=== PATIENT | female | born 1990 | race Caucasian/White ===

== ENCOUNTER 2023-12-10 18:00 | Outpatient (RCR) | payer OTHER, SELFPAY | END 2023-12-10 23:59 | disposition home or self-care (01) | LOC: RPT 18:00 | PROVIDERS: ATTENDING PHYSICIAN Urology; FAMILY PHYSICIAN Family Medicine | DX: N94.10 Unspecified dyspareunia (principal); M62.89 Other specified disorders of muscle; N39.0 Urinary tract infection, site not specified; R10.2 Pelvic and perineal pain; Z73.6 Limitation of activities due to disability | CPT/HCPCS: 97110; 97112; 97140; 97163; 97530 ==

== ENCOUNTER 2024-01-15 17:12 | Outpatient (RCR) | payer OTHER, SELFPAY | END 2024-01-15 23:59 | disposition home or self-care (01) | LOC: RPT 17:12 | PROVIDERS: ATTENDING PHYSICIAN Urology; FAMILY PHYSICIAN Family Medicine | DX: N94.10 Unspecified dyspareunia (principal); M62.89 Other specified disorders of muscle; N39.0 Urinary tract infection, site not specified; R10.2 Pelvic and perineal pain; Z73.6 Limitation of activities due to disability | CPT/HCPCS: 97014; 97140; 97530 ==

== ENCOUNTER 2024-02-12 17:06 | Outpatient (RCR) | payer BC, SELFPAY | END 2024-02-12 23:59 | disposition home or self-care (01) | LOC: RPT 17:06 | PROVIDERS: ATTENDING PHYSICIAN Urology; FAMILY PHYSICIAN Family Medicine | DX: N94.10 Unspecified dyspareunia (principal); M62.89 Other specified disorders of muscle; N39.0 Urinary tract infection, site not specified; R10.2 Pelvic and perineal pain; Z73.6 Limitation of activities due to disability | CPT/HCPCS: 97014; 97110; 97112; 97140; 97163; 97530 ==

== ENCOUNTER 2024-03-04 17:34 | Outpatient (RCR) | payer BC, SELFPAY | END 2024-03-04 23:59 | disposition home or self-care (01) | LOC: RPT 17:34 | PROVIDERS: ATTENDING PHYSICIAN Urology; FAMILY PHYSICIAN Family Medicine | DX: N94.10 Unspecified dyspareunia (principal); M62.89 Other specified disorders of muscle; N39.0 Urinary tract infection, site not specified; R10.2 Pelvic and perineal pain; Z73.6 Limitation of activities due to disability | CPT/HCPCS: 97014; 97110; 97140; 97530 ==

== ENCOUNTER 2024-04-15 17:30 | Outpatient (RCR) | payer BC, SELFPAY | END 2024-04-15 23:59 | disposition home or self-care (01) | LOC: RPT 17:30 | PROVIDERS: ATTENDING PHYSICIAN Urology; FAMILY PHYSICIAN Family Medicine | DX: N94.10 Unspecified dyspareunia (principal); M62.89 Other specified disorders of muscle; N39.0 Urinary tract infection, site not specified; R10.2 Pelvic and perineal pain; Z73.6 Limitation of activities due to disability | CPT/HCPCS: 97014; 97110; 97140; 97530 ==

== ENCOUNTER 2024-04-27 15:07 | Outpatient (RCR) | payer BC, SELFPAY | END 2024-04-27 23:59 | disposition home or self-care (01) | LOC: RPT 15:07 | PROVIDERS: ATTENDING PHYSICIAN Urology; FAMILY PHYSICIAN Family Medicine | DX: N94.10 Unspecified dyspareunia (principal); M62.89 Other specified disorders of muscle; N39.0 Urinary tract infection, site not specified; R10.2 Pelvic and perineal pain; Z73.6 Limitation of activities due to disability | CPT/HCPCS: 97112; 97140; 97530 ==

== ENCOUNTER 2024-06-16 17:11 | Outpatient (RCR) | payer BC, SELFPAY | END 2024-06-16 23:59 | disposition home or self-care (01) | LOC: RPT 17:11 | PROVIDERS: ATTENDING PHYSICIAN Urology; FAMILY PHYSICIAN Family Medicine | DX: N94.10 Unspecified dyspareunia (principal); M62.89 Other specified disorders of muscle; N39.0 Urinary tract infection, site not specified; R10.2 Pelvic and perineal pain; Z73.6 Limitation of activities due to disability | CPT/HCPCS: 97014; 97112; 97140; 97530 ==

== ENCOUNTER 2024-07-14 17:12 | Outpatient (RCR) | payer BC, SELFPAY | END 2024-07-14 23:59 | disposition home or self-care (01) | LOC: RPT 17:12 | PROVIDERS: ATTENDING PHYSICIAN Urology; FAMILY PHYSICIAN Family Medicine | DX: N94.10 Unspecified dyspareunia (principal); M62.89 Other specified disorders of muscle; N39.0 Urinary tract infection, site not specified; R10.2 Pelvic and perineal pain; Z73.6 Limitation of activities due to disability | CPT/HCPCS: 97014; 97112; 97140; 97530 ==

== ENCOUNTER 2024-08-12 16:40 | Outpatient (RCR) | payer BC, SELFPAY | END 2024-08-12 23:59 | disposition home or self-care (01) | LOC: RPT 16:40 | PROVIDERS: ATTENDING PHYSICIAN Urology; FAMILY PHYSICIAN Family Medicine | DX: N94.10 Unspecified dyspareunia (principal); M62.89 Other specified disorders of muscle; N39.0 Urinary tract infection, site not specified; R10.2 Pelvic and perineal pain; Z73.6 Limitation of activities due to disability | CPT/HCPCS: 97140; 97530 ==

== ENCOUNTER 2024-09-14 17:08 | Outpatient (RCR) | payer BC, SELFPAY | END 2024-09-14 23:59 | disposition home or self-care (01) | LOC: RPT 17:08 | PROVIDERS: ATTENDING PHYSICIAN Urology; FAMILY PHYSICIAN Family Medicine | DX: N94.10 Unspecified dyspareunia (principal); M62.89 Other specified disorders of muscle; N39.0 Urinary tract infection, site not specified; R10.2 Pelvic and perineal pain; Z73.6 Limitation of activities due to disability | CPT/HCPCS: 97014; 97110; 97112; 97140; 97530 ==

== ENCOUNTER 2024-10-06 17:17 | Outpatient (RCR) | payer BC, SELFPAY | END 2024-10-06 23:59 | disposition home or self-care (01) | LOC: RPT 17:17 | PROVIDERS: ATTENDING PHYSICIAN Urology; FAMILY PHYSICIAN Family Medicine | DX: N94.10 Unspecified dyspareunia (principal); M62.89 Other specified disorders of muscle; N39.0 Urinary tract infection, site not specified; R10.2 Pelvic and perineal pain; Z87.440 Personal history of urinary (tract) infections; Z73.6 Limitation of activities due to disability | CPT/HCPCS: 97014; 97112; 97140; 97530 ==

== ENCOUNTER 2024-11-04 17:10 | Outpatient (RCR) | payer BC, SELFPAY | END 2024-11-04 23:59 | disposition home or self-care (01) | LOC: RPT 17:10 | PROVIDERS: ATTENDING PHYSICIAN Urology; FAMILY PHYSICIAN Family Medicine | DX: N94.10 Unspecified dyspareunia (principal); M62.89 Other specified disorders of muscle; R10.2 Pelvic and perineal pain; Z73.6 Limitation of activities due to disability; Z87.440 Personal history of urinary (tract) infections; N39.0 Urinary tract infection, site not specified | CPT/HCPCS: 97014; 97140; 97530 ==

== ENCOUNTER 2024-12-01 17:06 | Outpatient (RCR) | payer BC, SELFPAY | END 2024-12-01 23:59 | disposition home or self-care (01) | LOC: RPT 17:06 | PROVIDERS: ATTENDING PHYSICIAN Urology; FAMILY PHYSICIAN Family Medicine | DX: N94.10 Unspecified dyspareunia (principal); M62.89 Other specified disorders of muscle; R10.2 Pelvic and perineal pain; Z73.6 Limitation of activities due to disability; Z87.440 Personal history of urinary (tract) infections; N39.0 Urinary tract infection, site not specified | CPT/HCPCS: 97140; 97530 ==

== ENCOUNTER 2025-01-05 17:10 | Outpatient (RCR) | payer BC, SELFPAY | END 2025-01-05 23:59 | disposition home or self-care (01) | LOC: RPT 17:10 | PROVIDERS: ATTENDING PHYSICIAN Urology; FAMILY PHYSICIAN Family Medicine | DX: N94.10 Unspecified dyspareunia (principal); M62.89 Other specified disorders of muscle; R10.2 Pelvic and perineal pain; Z73.6 Limitation of activities due to disability; Z87.440 Personal history of urinary (tract) infections; N39.0 Urinary tract infection, site not specified | CPT/HCPCS: 97140; 97530 ==

== ENCOUNTER 2025-02-17 17:19 | Outpatient (RCR) | payer BC, SELFPAY | END 2025-02-17 23:59 | disposition home or self-care (01) | LOC: RPT 17:19 | PROVIDERS: ATTENDING PHYSICIAN Urology; FAMILY PHYSICIAN Family Medicine | DX: N94.10 Unspecified dyspareunia (principal); M62.89 Other specified disorders of muscle; R10.2 Pelvic and perineal pain; Z73.6 Limitation of activities due to disability; N39.0 Urinary tract infection, site not specified; Z87.440 Personal history of urinary (tract) infections | CPT/HCPCS: 97140; 97530 ==

== ENCOUNTER 2025-05-04 09:04 | Outpatient (RCR) | payer BC, SELFPAY | END 2025-05-04 23:59 | disposition home or self-care (01) | LOC: RPT 09:04 | PROVIDERS: ATTENDING PHYSICIAN Urology; FAMILY PHYSICIAN Family Medicine | DX: N94.10 Unspecified dyspareunia (principal); M62.89 Other specified disorders of muscle; R10.2 Pelvic and perineal pain; Z73.6 Limitation of activities due to disability; N39.0 Urinary tract infection, site not specified; Z87.440 Personal history of urinary (tract) infections | CPT/HCPCS: 97110; 97140; 97530 ==

== ENCOUNTER 2025-07-13 17:08 | Outpatient (RCR) | payer BC, SELFPAY | END 2025-07-13 23:59 | disposition home or self-care (01) | LOC: RPT 17:08 | PROVIDERS: ATTENDING PHYSICIAN Family Medicine | DX: S93.491D Sprain of other ligament of right ankle, subsequent encounter (principal); Z73.6 Limitation of activities due to disability; M25.371 Other instability, right ankle; W10.9XXD Fall (on) (from) unspecified stairs and steps, subsequent encounter | CPT/HCPCS: 97110; 97112; 97140; 97161 ==

== ENCOUNTER 2025-07-15 09:14 | Outpatient (RCR) | payer BC, SELFPAY | END 2025-07-15 23:59 | disposition home or self-care (01) | LOC: RPT 09:14 | PROVIDERS: ATTENDING PHYSICIAN Urology; FAMILY PHYSICIAN Family Medicine | DX: N94.10 Unspecified dyspareunia (principal); M62.89 Other specified disorders of muscle; R10.2 Pelvic and perineal pain; Z73.6 Limitation of activities due to disability; N39.0 Urinary tract infection, site not specified; Z87.440 Personal history of urinary (tract) infections | CPT/HCPCS: 97110; 97140; 97530 ==

== ENCOUNTER 2025-07-29 09:26 | Outpatient (RCR) | payer BC, SELFPAY | END 2025-07-29 23:59 | disposition home or self-care (01) | LOC: RPT 09:26 | PROVIDERS: ATTENDING PHYSICIAN Family Medicine | DX: S93.491D Sprain of other ligament of right ankle, subsequent encounter (principal); Z73.6 Limitation of activities due to disability; M25.371 Other instability, right ankle; W10.9XXD Fall (on) (from) unspecified stairs and steps, subsequent encounter | CPT/HCPCS: 97110; 97112; 97140 ==

== ENCOUNTER 2025-10-01 21:03 | Emergency (ER) | payer BC, SELFPAY ==
[2025-10-01 21:05] VITALS: BP 137/81
[2025-10-01 21:22] VITALS: BMI 23.7
[2025-10-01 21:25] VITALS: BP 115/81
[2025-10-01] MEDS: NSS 500 IV (21:56)
[2025-10-01] MEDS: DECADRON 10 MG IV (21:57)
[2025-10-01 22:00] VITALS: BP 97/72
[2025-10-01] MEDS: PEPCID 20 MG IV (22:05)
[2025-10-01] MEDS: DUONEB 3 ML INH (22:07)
--- NOTE | 2025-10-01 22:08 | ED.GENMED ---
History of Present Illness
General
Chief Complaint: Allergic Reaction
Source: patient
Exam Limitations: none
Time Seen by Provider: 10/01/25 21:20
Nursing documentation reviewed up to this point in time: agreed with
History of Present Illness
History of Present Illness:
35-year-old female with past medical history of asthma, gluten allergy, presents to ER today with concerns of a possible allergic reaction. She reports that she ate dinner and shortly after she developed puffiness in her face and itchiness all over
her body. She also noted some stomach cramping and mucus sensation in her throat. She ate quinoa from a restaurant which she fears contained gluten. This is a typical reaction she gets with gluten. She has never required epi and Afrin in the
past. She has never been hospitalized with anaphylaxis. She also noted a little shortness of breath at the time and took albuterol which helped. She also did 50 mg of Benadryl. She denies any chest pain. She denies any fevers or chills. She
denies any new detergents she uses or facial washes. She denies any exposure to any other allergens.
Past History
Past History
ED Past Medical History: Asthma
ED Past Surgical History: None
Social History
Tobacco: Non-smoker
Alcohol: None
Personal: Single
Living: with family
Employment: Other (College student)
Review of Systems
Review of Systems
All Other Systems: ROS reviewed and negative except as documented in HPI and ROS
Phy Exam
Physical Exam
Physical Exam:
General: Patient is well appearing and in no acute distress; non-toxic
Skin: Warm and dry, mild erythema and periorbital swelling bilaterally, no evidence of rash on the torso or back, no urticaria
Head: Normocephalic, atraumatic
Eyes: Sclera non-icteric. EOMs intact.
Cardiac: Regular rate and rhythm, no murmurs
Peripheral Vascular: No lower extremity swelling or edema
Pulm: Normal respiratory effort, mild wheezing noted on the right side
Neuro: CN II-XII intact, no focal neurologic deficits.
Psychiatric: Appropriate mood and affect.
Course
Orders/Labs/Results
Orders:
Orders
10/01/25 21:50
Cardiac Monitoring- Treatment ONCE
Dexamethasone Sod Phosphate [Decadron] 10 mg IV NOW STA
Famotidine [Pepcid] 20 mg IV NOW STA
Ipratropium/Albuterol Sulfate [Duoneb] 3 ml INH R NOW STA
10/01/25 21:52
0.9% Sodium Chloride 500 ml [Nss] 500 ml IV BOLUS
Vital Signs
Initial and Last Documented VS:
Initial Vital Signs
Temp Pulse Resp BP Pulse Ox
97.6 F 88 14 137/81 99
10/01/25 21:05 10/01/25 21:05 10/01/25 21:05 10/01/25 21:05 10/01/25 21:05
Last Documented Vital Signs
Temp Pulse Resp BP Pulse Ox
97.6 F 83 14 102/71 96
10/01/25 21:05 10/01/25 23:45 10/01/25 23:30 10/01/25 23:28 10/01/25 23:45
MDM/Problems Addressed
Differential Diagnosis Includes:
Differentials include allergic reaction, asthma exacerbation, contact dermatitis
MDM/Problems Addressed:
35-year-old female with past med history of asthma presents to ER today with concerns of potential allergic reaction. She ate quinoa at a restaurant and subsequently had a reaction which is typical of her gluten allergy. She had facial swelling,
itchiness, and abdominal discomfort. She has improved after Benadryl but still with some symptoms. On exam she is well-appearing no acute distress mild periorbital swelling and erythema. There is no uvula edema on exam. I gave her Decadron,
famotidine, and DuoNeb treatment. She is much improved. Did want to observe her for a longer period time however patient feels well and is requesting discharge. I discussed strict follow-up and return immediately for worsening symptoms. Patient
will follow-up with her primary care provider. Patient stable for discharge.
10/03:
7:28 am
I did call patient this morning, she continues to improve, swelling has gone down. I did notify her that I sent an EpiPen to her pharmacy should she have a severe reaction again or develop worsening symptoms.
Chronic conditions affecting care:
asthma
*Pulse Oximetry
SaO2: 98
Oxygen Mode of Delivery: Room air
Patient hypoxic: no
*Critical Care Note
Total Time (30-74mins, 75-104mins- exclusive of procedures): Not Applicable
Data Reviewed
Review of Other/Old Records Reveals: Records (No discharge summary in [facility] to review)
Source: patient and records
Prescriptions/Medications Considered But Not Given:
Considered epinephrine however no respiratory distress, no tachycardia, no hypoxia, improved after benadryl
Patient Management
Escalation/DeEscalation of care consider admission/obs:
Admit not indicated, patient stable for discharge
ED Attending Note
-
Portions of this chart may have been created with voice recognition software.� Occasional wrong word or��sound alike� substitutions may have occurred due to the inherent limitations of voice recognition software.
Discharge Plan
Departure
Patient Disposition: Home (Routine Discharge)
Date of Disposition: 10/01/25
Time of Disposition: 23:36
Patient with high blood pressure during this ER visit?: Yes
Condition: Good
Discharge Problem:
Allergic reaction
Instructions: Allergic reaction - ED (DC), BLOOD PRESSURE
Prescriptions:
New
prednisone 20 mg tablet
40 mg PO DAILY 5 Days Qty: 10 0RF
epinephrine [EpiPen 2-Tonny] 0.3 mg/0.3 mL auto-injector
0.3 ml IM ONCE Qty: 2 0RF
Referrals:
Duran Munguia DO [Family Provider, [facility]]
Activity Restrictions/Additional Instructions:
Prednisone sent to your pharmacy. Please take 40 mg once daily for 5 days. Please follow-up with your primary care provider.
PLEASE RETURN TO ER SHOULD YOU DEVELOP CHEST PAIN, SHORTNESS OF BREATH, INTRACTABLE NAUSEA OR VOMITING, FEVERS OR CHILLS, OR ANY OTHER SIGNS OR SYMPTOMS WORSEN YOU
Interventions
Interventions:
*Risk Screen - Suicide Last Done: 10/01/25 21:05
*General Assessment Last Done: 10/01/25 21:05
*Neglect/Abuse Screening Last Done: 10/01/25 21:05
*ED- Fall Risk Assessment Last Done: 10/01/25 21:24
*ED COVID-19 Vaccine History Last Done: 10/01/25 21:24
*ED Influenza Vaccine History Last Done: 10/01/25 21:24
*Nursing Disposition Last Done: 10/01/25 23:55
ED- Cardiac Assessment Last Done: 10/01/25 21:32
ED- Pulmonary Assessment Last Done: 10/01/25 21:32
ED-Skin Assessment Last Done: 10/01/25 21:32
Discharge Date and Time
Discharge Date/Time: 10/01/25 23:56
Print Language: MALDIVIAN
[2025-10-01 22:15] VITALS: BP 100/62
[2025-10-01 23:00] VITALS: BP 99/52
[2025-10-01 23:28] VITALS: BP 102/71
== END 2025-10-01 23:56 | disposition home or self-care (01) ==
LOC: EMR 21:03
PROVIDERS: EMERGENCY PHYSICIAN Emergency Medicine; FAMILY PHYSICIAN Family Medicine
DX: T78.40XA Allergy, unspecified, initial encounter (principal); X58.XXXA Exposure to other specified factors, initial encounter; J45.909 Unspecified asthma, uncomplicated; K90.41 Non-celiac gluten sensitivity
CPT/HCPCS: 99284; 96374; 96375; 96361; 94640